=== PATIENT | female | born 1970 | race Caucasian/White ===

== ENCOUNTER 2017-12-22 12:02 | Observation (INO) ==
[2017-12-22] MEDS ORDERED: IOPAMIDOL 100 ML BOTTLE IV ONE (12:03)
[2017-12-22] MEDS ORDERED: 0.9 % SODIUM CHLORIDE 1,000 ML IV ONE (12:12)
[2017-12-22] MEDS ORDERED: 0.9 % SODIUM CHLORIDE 250 ML IV SCH ×2 (12:45→20:14)
[2017-12-22] MEDS ORDERED: PANTOPRAZOLE 40 MG VIAL IV ONE (12:46)
[2017-12-22 13:40] LABS: Basophils # (Auto) 0 K/mcL (0.0-0.3); Basophils % (Auto) 0.2 % (0.0-2.0); Eosinophils # (Auto) 0 K/mcL (0.0-0.7); Eosinophils % (Auto) 0.2 % (0.0-7.0); Granulocytes % (Auto) 89.8 % (38.0-78.0); Lymphocytes # (Auto) 0.4 K/mcL (1.5-4.8); Lymphocytes % (Auto) 5.4 % (15.5-49.0); Mean Cell Volume 84.7 fL (80.0-100.0); Monocytes # (Auto) 0.3 K/mcL (0.1-0.9); Monocytes % (Auto) 4.4 % (1.0-12.0); Platelet Count 217 K/mcL (140-440); RBC 4.49 M/mcL (4.00-5.20); Red Cell Distribution Width 13.5 % (11.5-14.5)
[2017-12-22] MEDS ORDERED: ACETAMINOPHEN 1,000 MG/100 ML BOTTLE IV ONE (14:02)
[2017-12-22 14:10] LABS: ALT/SGPT 13 U/l (0-40); Albumin 3.9 gm/dL (3.2-5.2); Albumin/Globulin Ratio 1.3 (1.0-2.3); Alkaline Phosphatase 72 U/L (39-117); Blood Urea Nitrogen 9 mg/dl (6-20)
[2017-12-22] MEDS ORDERED: ONDANSETRON 4 MG/2 ML VIAL IV ONE (15:12)
--- NOTE | 2017-12-22 17:57 | Cat Scan Report ---
History: Headache and syncope TECHNIQUE: The brain was imaged without contrast at 2.5 mm intervals. Radiation exposure was limited using dose reduction technology. FINDINGS: There is no evidence hemorrhage, infarct, edema or mass effect. The ventricles and cisterns are normal. Incidentally noted is a dense ossification in the falx, between the frontal lobes. The visualized sinuses are clear. IMPRESSION: Normal exam Sloane Fortune was called with the results Interpreted and Authenticated by: Amari Tay 12/22/17
--- NOTE | 2017-12-22 18:07 | Cat Scan Report ---
CLINICAL INFORMATION: Rectal bleeding and abdominal pain COMPARISON: 08/27/05 TECHNIQUE: Following oral contrast and the injection of intravenous contrast the patient was scanned during the portal venous phase from the diaphragm through the symphysis pubis. Delayed excretory phase images were acquired the upper abdomen. Sagittal and coronal reformats were created.. 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 This has enlarged since 2005. Associated with this are bands of atelectasis in the adjacent left lower lobe. The liver, gallbladder spleen pancreas and adrenals are normal. There are several fat-containing tumors in both kidneys. The largest is located anteriorly in the middle third of the left kidney. It is well-circumscribed and measures 5.2 x 5.2 cm. It measured 2.6 x 3.2 cm. There are couple other smaller fat-containing masses in the left kidney which are less than 7 mm in size. There are also several small fat-containing tumors in the right kidney. The largest extends exophytically from the posterior border of the lower pole. It measures 2.3 x 2.3 cm. It has also enlarged since 2005. There is no associated hemorrhage. No kidney stone or hydronephrosis are present. There is no abnormal enlarged lymph nodes within the abdomen or pelvis. The oral contrast has passed through stomach and normal bowel to the rectum without obstruction. There is a moderate amount stool throughout the colon. The appendix is noninflamed. There is no evidence of diverticulitis or inflammatory bowel disease. No obvious tumor is seen within the bowel. Polyps could easily be missed by the overlying stool. The uterus and ovaries appear normal. The urinary bladder is normal in caliber but unopacified. 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 Interpreted and Authenticated by: Amari Tay 12/22/17
[2017-12-22] MEDS ORDERED: PROMETHAZINE 25 MG/ML VIAL IV ONE (18:10)
--- NOTE | 2017-12-22 18:29 | Emergency Department Note ---
GI Bleed HPI - General Chief complaint: Rectal Bleed Stated complaint: black stools Time Seen by Provider: 12/22/17 12:08 Source: patient Mode of arrival: ambulatory Limitations: no limitations - History of Present Illness HPI Narrative: 47-year-old female presents with generally not feeling well since Thursday. States she feels very lightheaded and weak. Also has some body aches. Intermittent headache as well as nausea and vomiting. The last 48 hours she has noticed dark tarry stools and believes there is blood in her stools. The last time this happened she had peptic ulcers and had to have have 4 units of blood transfused and she believes that was roughly 4 years ago. She has saw Dr. Perez at that time. Her symptoms have progressed since Thursday so she presented to Dr. Mendoza's office today. When she presented to their office her blood pressure was 80/50 and she was tachycardic in the 120s. She then had a syncopal episode and was vomiting in their office as well. The center of the ER for further evaluation. Denies hitting her headache. No neck pain or stiffness. Has not vomited since her arrival to the ER but is complaining of severe nausea. No abdominal pain but does not report some abdominal cramping at times. Last normal bowel movement was yesterday and it was described as soft and formed but dark and tarry. No dysuria or frequency Associated symptoms: Reports: nausea, vomiting, chills, malaise, syncope, weakness. Denies: fever, shortness of breath - Related Data Home Medications Medication Instructions Recorded Confirmed Ibuprofen [Motrin] 800 mg PO TIDP PRN 04/23/16 12/22/17 Methocarbamol [Robaxin-750] 2 tab PO QIDP PRN 04/23/16 12/22/17 Ranitidine HCl [Acid Residential Team Leader] 150 mg PO DAILY 12/22/17 12/22/17 Allergies Allergy/AdvReac Type Severity Reaction Status Date / Time phenytoin [From Dilantin] Allergy Intermediate Confusion Verified 12/22/17 12:09 Review of Systems All systems ED: reviewed and negative except as stated. Past Medical History - Past Medical History Medical history: Reports: other (Peptic ulcer disease, anemia) - Social History smoking status: Never smoker Alcohol use: Reports: Rarely Drug use: Reports: none Physical Exam Limitations: no limitations General appearance: alert, in no apparent distress Head: atraumatic, normocephalic, normal inspection Eye: Present: normal appearance, PERRL. Absent: conjunctival injection, nystagmus ENT: normal exam, normal oropharynx, mucous membranes moist, TM's normal bilaterally, normal external ear exam Neck: Present: normal inspection, trachea midline. Absent: tenderness, lymphadenopathy Chest: Present: normal inspection, symmetric chest wall rise Respiratory: Present: normal lung sounds bilaterally. Absent: respiratory distress, rales/crackles, wheezes, stridor, accessory muscle use Cardiovascular: Present: regular rate, normal heart sounds Abdominal: Present: soft, normal bowel sounds. Absent: distention, tenderness, guarding, mass Rectal: Present: normal inspection, normal rectal tone, heme (+) stool, black stool. Absent: fecal impaction, hemorrhoids Extremities: Present: normal inspection, normal capillary refill. Absent: pedal edema Back: Absent: CVA tenderness (R), CVA tenderness (L) Neurological: Present: alert, oriented X3 Psychiatric: Present: normal affect, normal mood Skin: Present: warm, dry, intact, normal color Course Course Narrative: At 15[address] I did speak with Dr[address] Metzger, surgery who agreed to consult on this patient but felt it was more appropriate of a hospitalist admit. At [address] with Dr. Lugo, the hospitalist and he would like us to get a head CT due to syncope and we are currently awaiting the abdominal pelvic CT as well. We also add a troponin. Dr. Orellana did review her EKG and there are no significant findings. At 1830 I did speak with Dr. Lugo who agrees to admit the patient. Vital Signs Temperature 98.2 F 12/22/17 12:03 Respiratory Rate 16 12/22/17 12:03 Blood Pressure 134/74 12/22/17 12:03 Pulse Oximetry (%) 94 12/22/17 12:03 Temperature 98.2 F 12/22/17 12:03 Pulse Rate 83 12/22/17 17:39 Respiratory Rate 21 12/22/17 17:39 Blood Pressure 110/64 12/22/17 17:39 Pulse Oximetry (%) 100 12/22/17 17:39 GI Bleed - Lab Data Lab results reviewed: Yes I reviewed the patient's lab results. Result diagrams: 12/22/17 12:11 12/22/17 12:36 Lab Results 12/22/17 12/22/17 12/22/17 Range/Units 12:11 12:16 12:36 WBC 7.5 (4.5-11.0) K/mcL RBC 4.49 (4.00-5.20) M/mcL Hgb 12.6 (12.0-15.0) g/dL Hct 38.0 (36.0-48.0) % POC Hct 39.0 (36.0-48.0) % MCV 84.7 (80.0-100.0) fL MCH 28.0 (26.0-34.0) pg MCHC 33.0 (31.0-36.0) g/dL RDW 13.5 (11.5-14.5) % Plt Count 217 (140-440) K/mcL MPV 9.6 (7.4-10.4) fL Gran % 89.8 H (38.0-78.0) % Lymph % (Auto) 5.4 L (15.5-49.0) % [place] % (Auto) 4.4 (1.0-12.0) % Eos % (Auto) 0.2 (0.0-7.0) % Baso % (Auto) 0.2 (0.0-2.0) % Gran # 6.7 (1.8-8.0) K/mcL Lymph # (Auto) 0.4 L (1.5-4.8) K/mcL [place] # (Auto) 0.3 (0.1-0.9) K/mcL Eos # (Auto) 0 (0.0-0.7) K/mcL Baso # (Auto) 0 (0.0-0.3) K/mcL PT 13.4 (11.9-14.5) sec INR 1.0 (0.9-1.1) POC Sodium 142 (133-145) mmol/L Sodium 140 (133-145) mmol/L POC Potassium 3.8 (3.3-5.1) mmol/L Potassium 3.9 (3.3-5.1) mmol/L POC Chloride 105 (96-108) mmol/L Chloride 105 (96-108) mmol/L Carbon Dioxide 22 (22-30) mmol/L POC Total CO2 24 (22-30) mmol/L Anion Gap 13.0 (8-16) POC BUN 9 (6-20) mg/dl BUN 9 (6-20) mg/dl Creatinine 0.8 (0.6-1.1) mg/dl POC Creatinine 0.7 (0.6-1.1) mg/dl GFR Calculation 88 Glucose 120 H (70-105) mg/dL POC Glucose 116 H (70-105) mg/dL Calcium 8.7 (8.6-10.4) mg/dl POC WB Ioniz Calcium 1.16 (1.16-1.32) mmol/L Total Bilirubin 0.3 (0.0-1.0) mg/dL AST 19 (0-37) U/l ALT 13 (0-40) U/l Alkaline Phosphatase 72 (39-117) U/L Troponin T (0-0.03) ng/ml Total Protein 6.8 (5.9-8.4) gm/dL Albumin 3.9 (3.2-5.2) gm/dL Globulin 2.9 (2.2-3.7) gm/dL Albumin/Globulin Ratio 1.3 (1.0-2.3) 12/22/17 Range/Units 15:52 WBC (4.5-11.0) K/mcL RBC (4.00-5.20) M/mcL Hgb (12.0-15.0) g/dL Hct (36.0-48.0) % POC Hct (36.0-48.0) % MCV (80.0-100.0) fL MCH (26.0-34.0) pg MCHC (31.0-36.0) g/dL RDW (11.5-14.5) % Plt Count (140-440) K/mcL MPV (7.4-10.4) fL Gran % (38.0-78.0) % Lymph % (Auto) (15.5-49.0) % [place] % (Auto) (1.0-12.0) % Eos % (Auto) (0.0-7.0) % Baso % (Auto) (0.0-2.0) % Gran # (1.8-8.0) K/mcL Lymph # (Auto) (1.5-4.8) K/mcL [place] # (Auto) (0.1-0.9) K/mcL Eos # (Auto) (0.0-0.7) K/mcL Baso # (Auto) (0.0-0.3) K/mcL PT (11.9-14.5) sec INR (0.9-1.1) POC Sodium (133-145) mmol/L Sodium (133-145) mmol/L POC Potassium (3.3-5.1) mmol/L Potassium (3.3-5.1) mmol/L POC Chloride (96-108) mmol/L Chloride (96-108) mmol/L Carbon Dioxide (22-30) mmol/L POC Total CO2 (22-30) mmol/L Anion Gap (8-16) POC BUN (6-20) mg/dl BUN (6-20) mg/dl Creatinine (0.6-1.1) mg/dl POC Creatinine (0.6-1.1) mg/dl GFR Calculation Glucose (70-105) mg/dL POC Glucose (70-105) mg/dL Calcium (8.6-10.4) mg/dl POC WB Ioniz Calcium (1.16-1.32) mmol/L Total Bilirubin (0.0-1.0) mg/dL AST (0-37) U/l ALT (0-40) U/l Alkaline Phosphatase (39-117) U/L Troponin T < 0.01 (0-0.03) ng/ml Total Protein (5.9-8.4) gm/dL Albumin (3.2-5.2) gm/dL Globulin (2.2-3.7) gm/dL Albumin/Globulin Ratio (1.0-2.3) - Radiology Data Radiology results reviewed: Yes I reviewed the patient's radiology results. Disposition Pt seen by PRODUCTION OPERATIONS MANAGER/PA only: Yes Clinical Impression: Syncope, Dehydration, Blood in stool, Vomiting Disposition: Xfer As Outpt/Obs ([facility]) Condition: Fair Referrals: Rob Mendoza MD [Primary Care Provider] - Chyna Metzger MD [Physician] - Time of Disposition: 18:35
--- NOTE | 2017-12-22 20:20 | Internal Med History&Physical ---
Medical - H&P: HPI Patient information: Note initiated : 12/22/17 at 8:17 pm Service Date, if different from initiated Date: [] Patient: Pema White a 47 y/o F admitted on 12/22/17 for black stools. Chief Complaint: [] History of present illness: Ms. 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 Presents to the emergency room for evaluation of black tarry stools since yesterday, inability to tolerate p.o. since yesterday. The patient notes she has chronic migraines, vertigo and chronic nausea, yesterday she noticed she had black tarry stools, she was not able to tolerate p.o. very much. This morning again she had black tarry stools, she was throwing up, she was feeling weak and tired. She called her primary care provider's office for an evaluation. In the primary care providers office the patient had an episode of syncope. Also had low blood pressure. She was sent to the emergency room for further evaluation. According to the patient she synopsized while she was sitting in the chair and passed out as soon as she stood up. This is not the first time she has passed out she has had multiple episodes of passing out since childhood she can always predict when she is going to pass out. The patient denies any other acute complaints. In the emergency room the patient was seen and evaluated, workup done showed a normal hemoglobin, normal BUN, negative head CT, negative abdomen and pelvis CT. Fecal occult study was positive. Surgery was consulted for endoscopy they advised the patient to be admitted to medicine because of history of syncope. Patient had EKG changes however the troponin is negative. pt denies use of NSAIDs, heavy etoh use, use of blood thinners/ anticoagulants, or tobacco. Patient is being admitted to telemetry for observation and endoscopy All systems: reviewed and no additional remarkable complaints except as stated ( as per HPI rest negative) Medical - H&P: PMH Medical history: DVT/PE after femur fracture Anemia Car ulcer hiatal hernia chr vertigo Surgical history: EGD/ Colonscopy by dr jiang 2016 Family history: reviewed and not pertinent Social history: denies tobacco use, social etoh no recretional drug use reported Medical - H&P: Meds Home Medications Medication Instructions Recorded Confirmed Type Methocarbamol [Robaxin-750] 2 tab PO QIDP PRN 04/23/16 12/22/17 History Ranitidine HCl [Acid Irrigation Technician] 150 mg PO DAILY 12/22/17 12/22/17 History Allergies Allergy/AdvReac Type Severity Reaction Status Date / Time phenytoin [From Dilantin] AdvReac Mild Confusion Verified 12/22/17 20:15 Medical - H&P: Exam - Constitutional Vitals: Temp Pulse Resp BP Pulse Ox 98.2 F 94 H 22 98/48 99 12/22/17 20:02 12/22/17 20:02 12/22/17 20:02 12/22/17 20:02 12/22/17 20:02 Exam: GENERAL: The patient is a well-developed, well-nourished in no apparent distress. Is alert and oriented x3. VITAL SIGNS: Reviewed and as noted elsewhere. HEENT: Head is normocephalic and atraumatic. Extraocular muscles are intact. Pupils are equal, round, and reactive to light. Nares appeared normal. Mouth appears any without lesions. Mucous membranes are moist. NECK: Normal to inspection, Supple, No lymphadenopathy or thyromegaly. LUNGS: Air entry equal on both sides, no wheezing, crackles or rhonchi noted. No accessory muscles of respiration HEART: Regular rate and rhythm normal, S1 and S2 heard, no Gallop, S3 or Rub Noted, No Gross murmur heard. ABDOMEN: Soft, nontender, and nondistended. Positive bowel sounds. No hepatosplenomegaly was noted. EXTREMITIES: No cyanosis, clubbing, rash, lesions or edema. NEUROLOGIC: Cranial nerves II through XII are grossly intact. Motor and Sensory System Grossly Intact PSYCHIATRIC: Normal affect, Normal Mood. Appropriate Behavior. SKIN: No ulceration or wounds noted, No jaundice, No rash noted. Medical - H&P: Reslt - Labs CBC & Chem 7: 12/22/17 12:11 12/22/17 12:36 Labs: Short CBC 12/22/17 Range/Units 12:11 WBC 7.5 (4.5-11.0) K/mcL Hgb 12.6 (12.0-15.0) g/dL Hct 38.0 (36.0-48.0) % Plt Count 217 (140-440) K/mcL BMP 12/22/17 12:36 Sodium 140 Potassium 3.9 Chloride 105 Carbon Dioxide 22 BUN 9 Creatinine 0.8 Glucose 120 H Calcium 8.7 Cardiac Enzymes 12/22/17 Range/Units 15:52 Troponin T < 0.01 (0-0.03) ng/ml Liver Function 12/22/17 Range/Units 12:36 Total Bilirubin 0.3 (0.0-1.0) mg/dL AST 19 (0-37) U/l ALT 13 (0-40) U/l Alkaline Phosphatase 72 (39-117) U/L Albumin 3.9 (3.2-5.2) gm/dL Medical - H&P: A/P - Narrative A/P Narrative: A/P Acute GI bleed, likely upper GI bleed. Chr vertigo Syncope, vasovagal Nausea and Vomiting. h/o DVT and Pulmonary embolus, not on anticoagulation. Plan Observe on tele IV PPI bid for now Surgery consulted for Endoscopy, NPO MN IV zofran for prn nausea/vomiting. DVT with SCD NPO Diet Full code.
[2017-12-22] MEDS: 0.9 % SODIUM CHLORIDE 1,000 ML IV SCH (20:58)
[2017-12-22] MEDS: 0.9 % SODIUM CHLORIDE 10 ML SYRINGE IV SCH (20:59)
[2017-12-22] MEDS: PANTOPRAZOLE 40 MG VIAL IV SCH (20:59)
[2017-12-23 05:12] LABS: Basophils # (Auto) 0 K/mcL (0.0-0.3); Basophils % (Auto) 0.5 % (0.0-2.0); Eosinophils # (Auto) 0 K/mcL (0.0-0.7); Eosinophils % (Auto) 0.1 % (0.0-7.0); Granulocytes % (Auto) 64.6 % (38.0-78.0); Lymphocytes # (Auto) 0.8 K/mcL (1.5-4.8); Mean Cell Volume 84.9 fL (80.0-100.0); Monocytes # (Auto) 0.4 K/mcL (0.1-0.9); Monocytes % (Auto) 11.8 % (1.0-12.0); Platelet Count 172 K/mcL (140-440); RBC 3.74 M/mcL (4.00-5.20)
[2017-12-23 05:47] LABS: Blood Urea Nitrogen 5 mg/dl (6-20)
[2017-12-23] MEDS ORDERED: POTASSIUM CHLORIDE 40 MEQ in DEXTROSE 5% IN WATER 500 ML IV ONE (06:16)
[2017-12-23] MEDS: 0.9 % SODIUM CHLORIDE 1,000 ML IV SCH (06:51)
[2017-12-23] MEDS: PANTOPRAZOLE 40 MG VIAL IV SCH ×2 (06:51→16:57)
[2017-12-23] MEDS: 0.9 % SODIUM CHLORIDE 10 ML SYRINGE IV SCH ×3 (06:52→20:27)
--- NOTE | 2017-12-23 10:59 | XRay Report ---
HISTORY: Fever FINDINGS: Dense opacification is present posteriorly medially in the left lower lobe. The remainder the lungs are clear. No pleural effusion is detected. The heart size is normal. Comparison with the prior abdomen CT done on 12/22/17 shows that the density in left lower lobe is due to a large hiatus hernia with adjacent atelectasis. No acute infiltrate has developed. IMPRESSION: Large hiatus hernia in the left lower thorax with atelectasis in the adjacent lung. Interpreted and Authenticated by: Amari Tay 12/23/17
--- NOTE | 2017-12-23 11:52 | General Surgery Consult Note ---
History of Present Illness Patient information: Note initiated : 12/23/17 at 11:48 am Service Date, if different from initiated Date: [] Patient: Pema White 47 y/o F admitted on 12/22/17 for Black Stools/GI Bleed. Chief Complaint: [47-year-old female admitted with suspected upper GI bleed. The patient presents with history of nausea vomiting and black stools. She had 2 black stools at home before she was seen in her primary care physician's office. She had a syncopal episode in the office with blood pressure noted 80/ 50. She was transferred to the emergency room for she had more nausea with emesis but the emesis did not appear to be bloody however it was guaiac- positive. Her hemoglobin has decreased from 12.6-10.5 overnight. She has had 2 bowel movements since admission and. These were guaiac positive but not frankly bloody or melanotic. Patient has a prior history of a Car's ulcer in her hiatal hernia pouch. She presented in April 2016 with anemia with a hemoglobin of 6.6. Colonoscopy was normal except for rectal polyps. Upper endoscopy showed a large ulcer in her hiatal hernia pouch at the level of the diaphragm compatible with Car's ulcer. CLOtest was negative. She did have gastric polyps. The patient states that she took her PPI until symptoms resolve and then discontinue her PPI. She has not used NSAIDs recently.] Patient is counseled for upper endoscopy which will be done tomorrow. Review of Systems All systems PM: reviewed and no additional remarkable complaints except as stated - Constitutional headache(s) - Gastrointestinal bloating, dyspepsia, heartburn, melena, nausea, vomiting - Neurological paresthesias (right ulnar neuropathy), syncope (probable vasovagal syncope), vertigo Past History Past medical history: No chronic illness Past surgical history: OTIF right femur OTIF left hand and wrist Right knee arthroscopy Diagnostic laparoscopy Past family history: OTIF right femur Past social history: Employment Occasional alcohol use Denies tobacco use Denies drug use Medications and Allergies Home Medications Medication Instructions Recorded Confirmed Type Methocarbamol [Robaxin-750] 2 tab PO QIDP PRN 04/23/16 12/22/17 History Ranitidine HCl [Acid Public Relations Specialist] 150 mg PO DAILY PRN 12/22/17 12/22/17 History Allergies Allergy/AdvReac Type Severity Reaction Status Date / Time phenytoin [From Dilantin] AdvReac Mild Confusion Verified 12/22/17 20:15 Exam Temp Pulse Resp BP Pulse Ox 100.7 F H 81 16 116/74 96 12/23/17 07:45 12/23/17 03:57 12/23/17 07:45 12/23/17 07:45 12/23/17 07:45 - General physical appearance well developed, well nourished, no distress - Eyes PERRL, normal ocular movement - ENT normal pinna, normal nares, normal mucosa, no hearing loss, no congestion - Head Head exam IM: Present: atraumatic, normocephalic - Neck no masses, no bruits, trachea midline, no lymphadectomy, no venous distension - Cardiovascular Cardiovascular exam IM: Present: normal rate and rhythm, RRR, +S1, +S2. Absent : irregular rhythm, JVD, tachycardia - Respiratory normal expansion, normal respiratory effort, clear to auscultation - Abdomen Abdomen: Present: soft, non tender, bowel sounds Hernia: Present: none - Genitourinary Present: normal external genitalia - Integumentary Present: no rash, no growths, no abnormal pigmentation - Neurologic Present: normal coordination, normal sensation - Musculoskeletal Present: normal gait, normal posture - Psychiatric Present: oriented to time, oriented to person, oriented to place, speech is normal, memory intact Results - Labs 12/23/17 03:35 12/23/17 03:35 Abnormal lab results 12/22/17 12/22/17 12/23/17 Range/Units 12:11 12:36 03:35 WBC (4.5-11.0) K/mcL RBC (4.00-5.20) M/mcL Hgb (12.0-15.0) g/dL Hct (36.0-48.0) % Gran % 89.8 H (38.0-78.0) % Lymph % (Auto) 5.4 L (15.5-49.0) % Lymph # (Auto) 0.4 L (1.5-4.8) K/mcL Chloride 110 H (96-108) mmol/L Carbon Dioxide 21 L (22-30) mmol/L BUN 5 L (6-20) mg/dl Glucose 120 H (70-105) mg/dL POC Glucose 116 H (70-105) mg/dL Calcium 7.7 L (8.6-10.4) mg/dl 12/23/17 Range/Units 03:35 WBC 3.6 L (4.5-11.0) K/mcL RBC 3.74 L (4.00-5.20) M/mcL Hgb 10.5 L (12.0-15.0) g/dL Hct 31.8 L (36.0-48.0) % Gran % (38.0-78.0) % Lymph % (Auto) (15.5-49.0) % Lymph # (Auto) 0.8 L (1.5-4.8) K/mcL Chloride (96-108) mmol/L Carbon Dioxide (22-30) mmol/L BUN (6-20) mg/dl Glucose (70-105) mg/dL POC Glucose (70-105) mg/dL Calcium (8.6-10.4) mg/dl Diabetes panel 12/22/17 12/23/17 Range/Units 12:36 03:35 Sodium 140 141 (133-145) mmol/L Potassium 3.9 3.6 (3.3-5.1) mmol/L Chloride 105 110 H (96-108) mmol/L Carbon Dioxide 22 21 L (22-30) mmol/L BUN 9 5 L (6-20) mg/dl Creatinine 0.8 0.7 (0.6-1.1) mg/dl Glucose 120 H 97 (70-105) mg/dL Calcium 8.7 7.7 L (8.6-10.4) mg/dl AST 19 (0-37) U/l ALT 13 (0-40) U/l Alkaline Phosphatase 72 (39-117) U/L Total Protein 6.8 (5.9-8.4) gm/dL Albumin 3.9 (3.2-5.2) gm/dL Calcium panel 12/22/17 12/23/17 Range/Units 12:36 03:35 Calcium 8.7 7.7 L (8.6-10.4) mg/dl Albumin 3.9 (3.2-5.2) gm/dL Pituitary panel 12/22/17 12/23/17 Range/Units 12:36 03:35 Sodium 140 141 (133-145) mmol/L Potassium 3.9 3.6 (3.3-5.1) mmol/L Chloride 105 110 H (96-108) mmol/L Carbon Dioxide 22 21 L (22-30) mmol/L BUN 9 5 L (6-20) mg/dl Creatinine 0.8 0.7 (0.6-1.1) mg/dl Glucose 120 H 97 (70-105) mg/dL Calcium 8.7 7.7 L (8.6-10.4) mg/dl Adrenal panel 12/22/17 12/23/17 Range/Units 12:36 03:35 Sodium 140 141 (133-145) mmol/L Potassium 3.9 3.6 (3.3-5.1) mmol/L Chloride 105 110 H (96-108) mmol/L Carbon Dioxide 22 21 L (22-30) mmol/L BUN 9 5 L (6-20) mg/dl Creatinine 0.8 0.7 (0.6-1.1) mg/dl Glucose 120 H 97 (70-105) mg/dL Calcium 8.7 7.7 L (8.6-10.4) mg/dl Total Bilirubin 0.3 (0.0-1.0) mg/dL AST 19 (0-37) U/l ALT 13 (0-40) U/l Alkaline Phosphatase 72 (39-117) U/L Total Protein 6.8 (5.9-8.4) gm/dL Albumin 3.9 (3.2-5.2) gm/dL All other labs normal. Assessment and Plan (1) Upper gastrointestinal bleeding Patient has been started on PPI therapy. She is counseled for upper endoscopy and that will be done tomorrow. Status: Acute (2) Blood loss anemia Hemoglobin is stable and she probably will not need transfusion Status: Acute (3) Vasovagal syncope Status: Acute
[2017-12-23 13:52] LABS: Appearance,Urine CLEAR; Bacteria,Urine 0 /hpf (0); Bilirubin,Urine NEG (NEG); Color,Urine STRAW; Glucose,Urine (UA) NEGATIVE (NEG); Leukocyte Esterase,Urine NEG /uL (NEG); Mucus,Urine FEW /hpf (0); Protein,Urine NEG (NEG); Specific Gravity,Urine 1.004 (1.000-1.035); Urine Blood NEG mg/dL (<0.03); Urine RBC 0 /hpf (0-1); Urine Squamous Epithelial Cell < 1 /hpf (0-4); Urine WBC 1 /hpf (0-4); Urobilinogen,Urine NEG (NEG)
--- NOTE | 2017-12-23 19:14 | Internal Med Progress Note ---
Medical - PN: Subj Patient information: Note initiated : 12/23/17 at 7:11 pm Service Date, if different from initiated Date: [] Patient: Pema White a 47 y/o F admitted on 12/22/17 for Black Stools/GI Bleed. Chief Complaint: [] Interval history: Ms. 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 Presents to the emergency room for evaluation of black tarry stools since yesterday, inability to tolerate p.o. since yesterday. The patient notes she has chronic migraines, vertigo and chronic nausea, yesterday she noticed she had black tarry stools, she was not able to tolerate p.o. very much. This morning again she had black tarry stools, she was throwing up, she was feeling weak and tired. She called her primary care provider's office for an evaluation. In the primary care providers office the patient had an episode of syncope. Also had low blood pressure. She was sent to the emergency room for further evaluation. According to the patient she synopsized while she was sitting in the chair and passed out as soon as she stood up. This is not the first time she has passed out she has had multiple episodes of passing out since childhood she can always predict when she is going to pass out. The patient denies any other acute complaints. In the emergency room the patient was seen and evaluated, workup done showed a normal hemoglobin, normal BUN, negative head CT, negative abdomen and pelvis CT. Fecal occult study was positive. Surgery was consulted for endoscopy they advised the patient to be admitted to medicine because of history of syncope. Patient had EKG changes however the troponin is negative. pt denies use of NSAIDs, heavy etoh use, use of blood thinners/ anticoagulants, or tobacco. Patient is being admitted to telemetry for observation and endoscopy 12/23 Pt seen examined no acute overnight issues, some nausea, on IV PPI, lola resolved drop in hb by 2 gms, likely dilutional plan for EGD in AM fever this am, wbc neg, cxr shows atelectasis, ua neg likely cause for fever is atelectasis, incentive spirometery added Pertinent ROS: Denies headache, dizziness Denies chest pain, palpitations Denies cough or shortness of breath nausea present, . - Constitutional Vitals: Vital Signs Temp Pulse Resp BP Pulse Ox 99.7 F H 83 18 120/80 97 12/23/17 16:00 12/23/17 16:00 12/23/17 16:00 12/23/17 16:00 12/23/17 16:00 Period Temp Pulse Resp BP Sys/Blankenship Pulse Ox Last 24 Hr 98.0 F-101.5 F 75-94 16-22 98-120/48-80 95-99 Intake and Output 12/23/17 12/23/17 12/23/17 05:59 13:59 21:59 Intake Total 360 / 360 1908 / 1908 640 / 640 Output Total 850 / 850 1750 / 1750 1100 / 1100 Balance -490 / -490 158 / 158 -460 / -460 Intake & Output: Intake & Output 12/23/17 12/23/17 12/23/17 05:59 13:59 21:59 Intake Total 360 / 360 1908 / 1908 640 / 640 Output Total 850 / 850 1750 / 1750 1100 / 1100 Balance -490 / -490 158 / 158 -460 / -460 Intake: IV 1508 / 1508 Sodium Chloride 0.9% 1,000 ml @ 988 / 988 100 mls/hr IV .Q10H JOHNSON Rx#: [id number] Oral 360 / 360 400 / 400 640 / 640 Output: Void Amount 800 / 800 1750 / 1750 1100 / 1100 Stool 50 / 50 Other: Meal Lunch Lunch Percent of Meal Consumed 75% 100% Feeding Ability Assist with Tray Set Up Urine Appearance Clear Urine Color Bright Yellow Urine Odor Normal Stool Size Small Small Stool Color Brown Brown Stool Consistency Formed Formed # Bowel Movements 1 1 Exam: Constitutional; Afebrile, cooperative, alert, not in distress. Eyes- No icterus, , No periorbital swelling Ears- Ext ear normal, hearing normal to conversation. Neck- Midline trachea, supple Respiratory system: Air Entry equal on both sides, No crackles or wheezing, no rhonchi. CVS- Rate rhythm regular, S1,S2 heard, no gallop, no rub. Abdomen- Soft nontender abdomen, no organomegaly, no tenderness, no guarding or rigidity, NETWORK INFRASTRUCTURE ARCHITECT- AOOx3, moving all extremities, no gross focal deficit noted. Medical - PN: Obj Da - Labs CBC & Chem 7: 12/23/17 03:35 12/23/17 03:35 Labs: Abnormal Lab Results 12/23/17 12/23/17 12/22/17 03:35 03:35 12:36 WBC 3.6 L RBC 3.74 L Hgb 10.5 L Hct 31.8 L Gran % Lymph % (Auto) Lymph # (Auto) 0.8 L Chloride 110 H Carbon Dioxide 21 L BUN 5 L Glucose 120 H POC Glucose 116 H Calcium 7.7 L 12/22/17 12:11 WBC RBC Hgb Hct Gran % 89.8 H Lymph % (Auto) 5.4 L Lymph # (Auto) 0.4 L Chloride Carbon Dioxide BUN Glucose POC Glucose Calcium Meds: Medications Pantoprazole Sodium (Protonix) 40 mg IV BIDAC [facility] Last Admin: 12/23/17 16:57 Dose: 40 mg Sodium Chloride (Saline Flush) 10 ml IV Q8 [facility] Last Admin: 12/23/17 14:00 Dose: Not Given Medical - PN: A/P - Time Spent With Patient Total time spent is greater than 50% in coordination of care (as documented) at patient's floor/unit and/or counseling patient: - Narrative A/P Narrative: A/P Acute GI bleed, likely upper GI bleed. Chr vertigo Syncope, vasovagal Nausea and Vomiting. h/o DVT and Pulmonary embolus, not on anticoagulation. Fever secondary to atelectasis. Plan Observe on tele IV PPI bid for now Surgery consulted for Endoscopy, NPO MN IV zofran for prn nausea/vomiting. incentive spirometer for atelectasis. likely cause for fever DVT with SCD NPO Diet Full code. Medical - PN: Qual - VTE Deep Vein Thrombosis/Pulmonary Embolism Present on Admission: No
[2017-12-24] MEDS: 0.9 % SODIUM CHLORIDE 10 ML SYRINGE IV SCH ×4 (05:24→17:41)
[2017-12-24 05:41] LABS: Basophils # (Auto) 0 K/mcL (0.0-0.3); Basophils % (Auto) 0.8 % (0.0-2.0); Eosinophils # (Auto) 0.1 K/mcL (0.0-0.7); Eosinophils % (Auto) 2.4 % (0.0-7.0); Granulocytes % (Auto) 35.4 % (38.0-78.0); Lymphocytes # (Auto) 1.5 K/mcL (1.5-4.8); Lymphocytes % (Auto) 42.5 % (15.5-49.0); Mean Cell Volume 84.6 fL (80.0-100.0); Mean Corpuscular HGB Conc 33.6 g/dL (31.0-36.0); Mean Corpuscular Hemoglobin 28.4 pg (26.0-34.0); Monocytes # (Auto) 0.7 K/mcL (0.1-0.9); Monocytes % (Auto) 18.9 % (1.0-12.0); Platelet Count 182 K/mcL (140-440); RBC 4.04 M/mcL (4.00-5.20); Red Cell Distribution Width 13.5 % (11.5-14.5)
[2017-12-24] MEDS: PANTOPRAZOLE 40 MG VIAL IV SCH (08:23)
[2017-12-24 10:08] LABS: ALT/SGPT 10 U/l (0-40); Albumin 3.5 gm/dL (3.2-5.2); Albumin/Globulin Ratio 1.5 (1.0-2.3); Alkaline Phosphatase 61 U/L (39-117); Bilirubin,Direct < 0.2 mg/dL (0.0-0.3); Blood Urea Nitrogen 4 mg/dl (6-20); Gamma Glutamyl Transpeptidase 15 U/L (5-36); Uric Acid 3.3 mg/dL (2.5-8.0)
[2017-12-24] MEDS ORDERED: GLYCOPYRROLATE 0.2 MG/ML VIAL IV ONE (11:05)
[2017-12-24] MEDS ORDERED: MIDAZOLAM 2 MG/2 ML VIAL IV ONE (11:05)
[2017-12-24] MEDS ORDERED: fentaNYL 100 MCG/2 ML VIAL IV ONE (11:05)
[2017-12-24] MEDS ORDERED: PROPOFOL 200 MG/20 ML VIAL IV ONE (11:05)
[2017-12-24] MEDS ORDERED: KETAMINE 100 MG/ML ML IV ONE (11:05)
--- NOTE | 2017-12-24 11:22 | Brief Operative Note ---
Date of procedure: 12/24/17 Pre-op diagnosis: ACUTE GASTROINTESTINAL BLEED Post-op diagnosis: other (ACUTE EROSIVE GASTRITIS WITH GASTRIC EROSIONS; 2 ULCERS IN HIATAL HERNIA POUCH) Procedure: EGD Grafts/Implants: No Anesthesia: MAC Findings: ACUTE MODERATELY SEVERE INFLAMMATION IN ENTIRE STOMACH WITH MULTIPLE EROSIONS;2 SMALL ULCERS IN HIATAL HERNIA POUCH Complications: none Surgeon: Chyna Metzger Specimens Removed/Pathology: none sent Condition: stable Disposition: PACU
[2017-12-24] MEDS: SUCRALFATE 1 GM/10 ML ORAL.SUSP PO SCH ×2 (13:53→17:40)
--- NOTE | 2017-12-24 16:56 | Discharge Summary ---
Medical - DS: Prov Patient information: Note initiated : 12/24/17 at 4:52 pm Service Date, if different from initiated Date: [] Patient: Pema White a 47 y/o F admitted on 12/22/17 for Black Stools/GI Bleed. Chief Complaint: [] Date of admission: 12/22/17 19:53 Discharge date: 12/24/17 Primary care physician: Rob Mendoza Consults: 12/23/17 07:39 Consult to Physician [CONS] Routine Comment: consult Consulting Provider: Chyna Metzger Reason For Exam: Physician to Consult Discharging clinician: Preston Graves Medical - DS: Meds - Discharge Medications Prescriptions: Pantoprazole [Protonix] 40 mg PO QAMAC #90 tab Active and Home Medications: Home Medications Methocarbamol [Robaxin-750] 2 tab PO QIDP PRN 04/23/16 [History Confirmed Last Taken 12/08/17] Ranitidine HCl [Acid Warehouse Specialist] 150 mg PO DAILY PRN 12/22/17 [History Confirmed Last Taken 12/22/17 08:00] Medical - DS: Hosp Hospital course: Ms. 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 Presents to the emergency room for evaluation of black tarry stools since yesterday, inability to tolerate p.o. since yesterday. The patient notes she has chronic migraines, vertigo and chronic nausea, yesterday she noticed she had black tarry stools, she was not able to tolerate p.o. very much. This morning again she had black tarry stools, she was throwing up, she was feeling weak and tired. She called her primary care provider's office for an evaluation. In the primary care providers office the patient had an episode of syncope. Also had low blood pressure. She was sent to the emergency room for further evaluation. According to the patient she synopsized while she was sitting in the chair and passed out as soon as she stood up. This is not the first time she has passed out she has had multiple episodes of passing out since childhood she can always predict when she is going to pass out. The patient denies any other acute complaints. In the emergency room the patient was seen and evaluated, workup done showed a normal hemoglobin, normal BUN, negative head CT, negative abdomen and pelvis CT. Fecal occult study was positive. Surgery was consulted for endoscopy they advised the patient to be admitted to medicine because of history of syncope. Patient had EKG changes however the troponin is negative. pt denies use of NSAIDs, heavy etoh use, use of blood thinners/ anticoagulants, or tobacco. Patient is being admitted to telemetry for observation and endoscopy Patient was observed, remained hemodynamically stable, black stools turned to brown, no events on tele, Treated with IV PPI, she underwent a EGD Scopy which showed " ACUTE MODERATELY SEVERE INFLAMMATION IN ENTIRE STOMACH WITH MULTIPLE EROSIONS;2 SMALL ULCERS IN HIATAL HERNIA POUCH" Patient to be restarted on PPI, I am starting her on pantoprazole, but any PPI will do. PCP may consider workup for gastrin secreting syndrome as outpatient when patient symptoms are much better controlled. patient had fever during hospital stay, procalcitonin neg, chest x ray neg showed atelectasis, ua neg, CT Abdomen pelvis is negative. fever likely from atelectasis and responded to incentive spirometery. Rest of [facility] stay in the hospital was uneventful, no changes made to [facility] home medication list. Discharge diagnosis: Upper GI bleed - Time Spent with Patient Total time spent providing and/or coordinating discharge services: Greater than 30 minutes Medical - DS: Exam - Constitutional Vitals: Vital Signs Temp Pulse Resp BP Pulse Ox 12/24/17 13:00 97.4 F 74 18 121/71 95 12/24/17 12:30 75 18 123/67 96 12/24/17 12:15 82 18 111/77 94 12/24/17 12:00 88 18 112/82 92 12/24/17 11:49 97.6 F 91 H 16 118/79 93 12/24/17 08:00 97.7 F 75 16 112/73 95 12/24/17 03:52 98.9 F 79 16 111/72 93 12/23/17 23:58 98.7 F 84 16 118/78 95 12/23/17 20:00 99.8 F H 82 18 110/75 94 Intake and Output 12/24/17 12/24/17 12/24/17 05:59 13:59 21:59 Intake Total 480 / 480 360 / 360 Output Total 1450 / 1450 1153 / 1153 Balance -970 / -970 -793 / -793 Intake: Oral 480 / 480 360 / 360 Output: Urine Catheter Amount 1150 / 1150 Void Amount 1450 / 1450 Other: Meal Nourishment/Supplement Lunch Percent of Meal Consumed 100% 25% Feeding Ability Independent Independent Urine Appearance Clear Clear Urine Color Pale Urine Odor Normal Additional comments: Constitutional; Afebrile, cooperative, alert, not in distress. Eyes- No icterus, , No periorbital swelling Ears- Ext ear normal, hearing normal to conversation. Neck- Midline trachea, supple Respiratory system: Air Entry equal on both sides, No crackles or wheezing, no rhonchi. CVS- Rate rhythm regular, S1,S2 heard, no gallop, no rub. Abdomen- Soft nontender abdomen, no organomegaly, no tenderness, no guarding or rigidity, MUSICIAN INSTRUMENTAL- AOOx3, moving all extremities, no gross focal deficit noted. Medical - DS: Data Labs on day of discharge: Labs from last 24 hours 12/24/17 12/24/17 12/24/17 09:11 03:30 03:30 WBC 3.6 L RBC 4.04 Hgb 11.5 L Hct 34.2 L MCV 84.6 MCH 28.4 MCHC 33.6 RDW 13.5 Plt Count 182 MPV 9.9 Gran % 35.4 L Lymph % (Auto) 42.5 [place] % (Auto) 18.9 H Eos % (Auto) 2.4 Baso % (Auto) 0.8 Gran # 1.3 L Lymph # (Auto) 1.5 [place] # (Auto) 0.7 Eos # (Auto) 0.1 Baso # (Auto) 0 Sodium 139 Potassium 4.6 Chloride 107 Carbon Dioxide 26 Anion Gap 6.0 L BUN 4 L Creatinine 0.7 GFR Calculation 103 Glucose 99 Uric Acid 3.3 Calcium 8.5 L Phosphorus 3.1 Magnesium 1.9 Total Bilirubin 0.2 Direct Bilirubin < 0.2 GGT 15 AST 16 ALT 10 Alkaline Phosphatase 61 Lactate Dehydrogenase 255 H Total Protein 5.8 L Albumin 3.5 Globulin 2.3 Albumin/Globulin Ratio 1.5 Triglycerides 92 Procalcitonin < 0.05 Medical - DS: A/P - Patient/Caregiver Discharge Instructions Activity: increase activity as tolerated Diet: Regular Diet Additional Instructions: Take pantoprazole 30mins before a meal on empty stomach. Go to the ER if black stools, blood in the stools, fever or any other acute concern. Follow up with PCP in 1-2 weeks - Follow up Plan Follow up with: Rob Mendoza MD [Primary Care Provider] - 12/29/17 4:00 pm Disposition: Home, Self-Care Prognosis: Fair Rehab Potential: Fair I certify that the patient requires SNF services: No Overall status at discharge: patient is progressing back to baseline Medical - DS: Qual - VTE Deep Vein Thrombosis/Pulmonary Embolism Present on Admission: No
[2017-12-24] MEDS ORDERED: PANTOPRAZOLE 40 MG VIAL IV SCH (17:00)
--- NOTE | 2017-12-30 08:50 | Operative Note ---
DATE OF OPERATION: 12/24/2017 PREOPERATIVE DIAGNOSIS: Acute gastrointestinal bleeding. POSTOPERATIVE DIAGNOSIS: Acute erosive gastritis with gastric erosion with 2 ulcerations in the hiatal hernia pouch at the level of the diaphragm. PROCEDURE: Esophagogastroduodenoscopy with biopsies. SURGEON: Chyna Metzger M.D. FINDINGS: Acute moderately severe inflammation in the entire stomach with multiple erosions, two smaller healing ulcers in the hiatal hernia pouch at the level of the diaphragm. DESCRIPTION OF PROCEDURE: Under general anesthesia, the patient turned to the left lateral decubitus position. Bite block was placed. A time-out procedure was carried out as per protocol. Scope was introduced through the bite block into the retropharynx and into the esophagus. The esophagus was primarily unremarkable throughout its length. There was a large hiatal hernia. Immediately after entering the distal aspect of the stomach at the level of the diaphragm, there were two small ulcerations that were healing. These were linear ulcerations. The rest of the stomach had multiple erosions scattered throughout. Pylorus was unremarkable. Duodenum showed minimal inflammation. Second and third portion of his duodenum were normal. Scope was pulled back and retroflexed view was carried out. Two biopsies of the small ulcerations were taken. The patient tolerated the procedure well. Air was suctioned from the stomach and the scope was removed. The patient was awakened and monitored in the room and then transferred back to the [facility] in satisfactory condition. LCS:roxy Job ID: [id number] Doc ID: [id number] Chyna Metzger M.D.
== END 2017-12-24 18:08 | disposition home or self-care (01) ==
LOC: ICU 12:02 → ED 12:02 → ICU 19:53
PROVIDERS: ADMIT Internal Medicine; ATTEND Internal Medicine
CPT/HCPCS: 43239; 731; 80047; 84145; 85014; 99217; 99220; G0378; J0131; J2250; J2405; J2550; J3010; J3480; J7030; J7060; J7120; Q9967

== ENCOUNTER 2018-11-30 12:26 | Observation (INO) ==
[2018-11-30] MEDS ORDERED: ESOMEPRAZOLE 80 MG in 0.9 % SODIUM CHLORIDE 50 ML IV SCH (13:00)
[2018-11-30] MEDS ORDERED: ESOMEPRAZOLE 40 MG VIAL IV ONE ×2 (13:05→13:32)
--- NOTE | 2018-11-30 13:22 | Emergency Department Note ---
General Adult HPI - General Chief complaint: Bleeding Other Stated complaint: dark tarry stools Time Seen by Provider: 11/30/18 12:46 Source: patient Mode of arrival: ambulatory Limitations: no limitations - History of Present Illness HPI Narrative: 48-year-old patient presenting to the emergency department with a chief complaint of upper GI bleed. Patient's past medical history is significant for potentially up to 3 upper GI bleeds in the past. Medication history was assessed for possible NSAIDs, agents that cause pill esophagitis, antiplatelet and anticoagulant medication as well as bismuth and iron patient is taking none of these. Patient with onset of symptoms 1-2 days ago. Assessed the patient for symptoms of orthostatic hypotension, confusion, angina, palpitations, cold clammy extremities, dysphagia, early satiety, involuntary weight loss, jaundice, vomiting, and GERD. Patient did not have history of alcohol use. - Related Data Home Medications Medication Instructions Recorded Confirmed Methocarbamol [Robaxin-750] 2 tab PO QIDP PRN 04/23/16 11/30/18 Omeprazole [PriLOSEC] 40 mg PO ACB 11/30/18 11/30/18 Allergies Allergy/AdvReac Type Severity Reaction Status Date / Time phenytoin [From Dilantin] AdvReac Mild Confusion Verified 11/30/18 12:30 Review of Systems All systems ED: reviewed and negative except as stated. Past Medical History - Past Medical History PMFSH Narrative: All Active Problems Syncope (Acute) Dehydration (Acute) Blood in stool (Acute) Vomiting (Acute) Upper gastrointestinal bleeding (Acute) Blood loss anemia (Acute) Vasovagal syncope (Acute) Medical history: Reports: other (Peptic ulcer disease, anemia) - Social History smoking status: Never smoker Alcohol use: Reports: Rarely Drug use: Reports: none Physical Exam General: Alert, interactive, appropriate Head: Atraumatic, normocephalic Eyes: Extraocular movements intact, PERRLA Neck: Trachea midline, full range of motion Chest: Symmetrical chest wall rise, clear to auscultation bilateral without wheezes rales crackles or rubs Cardiovascular: Patient with excellent perfusion to the extremities, regular rate and rhythm without M/R/G; patient assessed for resting tachycardia, evidence of hypotension and patient was without these findings Abdomen: Nontender nondistended normoactive bowel sounds no masses no hepatosplenomegaly no rebound no guarding, patient assessed specifically for pe ritoneal findings Extremities: Full range of motion joints, warm well perfused Neuro: Alert, oriented x3, cranial nerves II through XII grossly intact, normal gait Psychiatric: Normal affect normal mood Limitations: no limitations Course Vital Signs Temperature 97.4 F 11/30/18 12:27 Pulse Rate 105 H 11/30/18 12:27 Respiratory Rate 20 11/30/18 12:27 Blood Pressure 118/82 11/30/18 12:27 Pulse Oximetry (%) 98 11/30/18 12:27 Temperature 98.3 F 12/01/18 04:04 Pulse Rate 75 12/01/18 04:04 Respiratory Rate 16 12/01/18 04:04 Blood Pressure 95/53 12/01/18 04:04 Pulse Oximetry (%) 95 12/01/18 04:04 Medical Decision Making - MDM Narrative Medical decision making narrative: Initial focus of the resuscitation was to determine hemodynamic stability. Risk stratifying the patient into the category of acutely unstable GI bleed, stable for admission and endoscopy, and stable for discharge with close follow-up. IV access was obtained, fluid resuscitation begun. Patient given Protonix 80 mg IV. Consider transfusion for hemoglobin less than or equal to 7 or less than or equal to 9 in high risk patients; patient with active vomiting of coffee-ground emesis in the emergency department as well as history of GI bleed requiring multiple days stays patient high risk category for decompensation. Discussed case with Dr. Metzger and the consensus medical opinion is to admit the patient f or endoscopy. Differential diagnosis considered includes gastric/duodenal ulcers, erosive gastritis/duodenitis, severe erosive esophagitis, variceal bleed, angiodysplasia, Sherron-Hutchinson tear, oncologic etiologies, aortoenteric fistula. - Lab Data Result diagrams: 12/01/18 04:04 12/01/18 04:04 Lab Results 11/30/18 11/30/18 11/30/18 Range/Units 13:03 13:03 13:03 WBC 9.9 (4.5-11.0) K/mcL RBC 4.47 (4.00-5.20) M/mcL Hgb 11.9 L (12.0-15.0) g/dL Hct 36.8 (36.0-48.0) % MCV 82.3 (80.0-100.0) fL MCH 26.7 (26.0-34.0) pg MCHC 32.4 (31.0-36.0) g/dL RDW 15.3 H (11.5-14.5) % Plt Count 281 (140-440) K/mcL MPV 9.3 (7.4-10.4) fL Gran % 68.2 (38.0-78.0) % Lymph % (Auto) 23.2 (15.5-49.0) % [place] % (Auto) 7.2 (1.0-12.0) % Eos % (Auto) 0.8 (0.0-7.0) % Baso % (Auto) 0.6 (0.0-2.0) % Gran # 6.7 (1.8-8.0) K/mcL Lymph # (Auto) 2.3 (1.5-4.8) K/mcL [place] # (Auto) 0.7 (0.1-0.9) K/mcL Eos # (Auto) 0.1 (0.0-0.7) K/mcL Baso # (Auto) 0.1 (0.0-0.3) K/mcL PT 13.6 (11.9-14.5) sec INR 1.0 (0.9-1.1) Sodium 140 (133-145) mmol/L Potassium 4.3 (3.3-5.1) mmol/L Chloride 106 (96-108) mmol/L Carbon Dioxide 23 (22-30) mmol/L Anion Gap 11.0 (8-16) BUN 28 H (6-20) mg/dl Creatinine 0.7 (0.6-1.1) mg/dl GFR Calculation 102 Glucose 102 (70-105) mg/dL Calcium 8.8 (8.6-10.4) mg/dl Total Bilirubin 0.2 (0.0-1.0) mg/dL AST 14 (0-37) U/l ALT 14 (0-40) U/l Alkaline Phosphatase 82 (39-117) U/L C-Reactive Protein (0.0-0.8) mg/dl Total Protein 6.7 (5.9-8.4) gm/dL Albumin 4.0 (3.2-5.2) gm/dL Globulin 2.7 (2.2-3.7) gm/dL Albumin/Globulin Ratio 1.5 (1.0-2.3) 11/30/18 Range/Units 13:03 WBC (4.5-11.0) K/mcL RBC (4.00-5.20) M/mcL Hgb (12.0-15.0) g/dL Hct (36.0-48.0) % MCV (80.0-100.0) fL MCH (26.0-34.0) pg MCHC (31.0-36.0) g/dL RDW (11.5-14.5) % Plt Count (140-440) K/mcL MPV (7.4-10.4) fL Gran % (38.0-78.0) % Lymph % (Auto) (15.5-49.0) % [place] % (Auto) (1.0-12.0) % Eos % (Auto) (0.0-7.0) % Baso % (Auto) (0.0-2.0) % Gran # (1.8-8.0) K/mcL Lymph # (Auto) (1.5-4.8) K/mcL [place] # (Auto) (0.1-0.9) K/mcL Eos # (Auto) (0.0-0.7) K/mcL Baso # (Auto) (0.0-0.3) K/mcL PT (11.9-14.5) sec INR (0.9-1.1) Sodium (133-145) mmol/L Potassium (3.3-5.1) mmol/L Chloride (96-108) mmol/L Carbon Dioxide (22-30) mmol/L Anion Gap (8-16) BUN (6-20) mg/dl Creatinine (0.6-1.1) mg/dl GFR Calculation Glucose (70-105) mg/dL Calcium (8.6-10.4) mg/dl Total Bilirubin (0.0-1.0) mg/dL AST (0-37) U/l ALT (0-40) U/l Alkaline Phosphatase (39-117) U/L C-Reactive Protein < 0.3 (0.0-0.8) mg/dl Total Protein (5.9-8.4) gm/dL Albumin (3.2-5.2) gm/dL Globulin (2.2-3.7) gm/dL Albumin/Globulin Ratio (1.0-2.3) Critical Care Time Critical Care Time: Yes Total Critical Care Time: 55 Attestation: This critical care time was direct patient care exclusive of other procedures. Disposition Pt seen by OUTREACH CONSULTANT/PA only: No Clinical Impression: Upper gastrointestinal bleeding Disposition: Xfer As Inpt ([facility]) Condition: Serious
[2018-11-30] MEDS ORDERED: ONDANSETRON 4 MG/2 ML VIAL IV ONE (13:33)
[2018-11-30 13:34] LABS: Basophils # (Auto) 0.1 K/mcL (0.0-0.3); Basophils % (Auto) 0.6 % (0.0-2.0); Eosinophils # (Auto) 0.1 K/mcL (0.0-0.7); Eosinophils % (Auto) 0.8 % (0.0-7.0); Granulocytes % (Auto) 68.2 % (38.0-78.0); Hematocrit 36.8 % (36.0-48.0); Hemoglobin 11.9 g/dL (12.0-15.0); Lymphocytes # (Auto) 2.3 K/mcL (1.5-4.8); Lymphocytes % (Auto) 23.2 % (15.5-49.0); Mean Cell Volume 82.3 fL (80.0-100.0); Mean Corpuscular HGB Conc 32.4 g/dL (31.0-36.0); Mean Platelet Volume 9.3 fL (7.4-10.4); Monocytes # (Auto) 0.7 K/mcL (0.1-0.9); Monocytes % (Auto) 7.2 % (1.0-12.0); Platelet Count 281 K/mcL (140-440); RBC 4.47 M/mcL (4.00-5.20); Red Cell Distribution Width 15.3 % (11.5-14.5); WBC 9.9 K/mcL (4.5-11.0)
[2018-11-30] MEDS ORDERED: 0.9 % SODIUM CHLORIDE 250 ML IV SCH ×2 (13:45→15:30)
[2018-11-30 13:51] LABS: Prothrombin Time 13.6 sec (11.9-14.5)
[2018-11-30 13:59] LABS: ALT/SGPT 14 U/l (0-40); AST/SGOT 14 U/l (0-37); Albumin/Globulin Ratio 1.5 (1.0-2.3); Alkaline Phosphatase 82 U/L (39-117); Bilirubin,Total 0.2 mg/dL (0.0-1.0); Blood Urea Nitrogen 28 mg/dl (6-20); Calcium 8.8 mg/dl (8.6-10.4); Carbon Dioxide 23 mmol/L (22-30); Chloride 106 mmol/L (96-108); Globulin 2.7 gm/dL (2.2-3.7); Glomerular Filtration Rate 102; Glucose 102 mg/dL (70-105)
[2018-11-30] MEDS ORDERED: ONDANSETRON 4 MG/2 ML VIAL IV PRN (14:35)
--- NOTE | 2018-11-30 15:09 | General Surg History&Physical ---
History of Present Illness Patient information: Note initiated : 11/30/18 at 3:05 pm Service Date, if different from initiated Date: [] Patient: Pema White a 48 y/o F admitted on for Dark Tarry Stools. Chief Complaint: [Upper GI bleeding] HPI: Ms. White is a 48 year old F admitted for upper GI bleeding. She had a prior admission in December 2017 with nausea vomiting and black stools. She had significant bleeding that time with a syncopal episode. Upper endoscopy showed a large ulcer or hiatal hernia pouch at the level of the diaphragm. She had a prior history of a similar ulcer in April 2016 when she had bleeding and down to 6.6. That was also felt to be due to a Car ulcer. Patient states that she started having dark stools on Thursday. On Thursday night she had diarrheal stools. But YESTERDAY SHE HAD BLACK STOOLS 5. SHE STATES THAT SHE HAS MILD EPIGASTRIC DISCOMFORT AND NAUSEA. She has not had bright red rectal bleeding. She has had emesis of coffee ground material 3 and had one episode in the emergency room. Her last hemoglobin was 12.6. She is admitted and will be started on treatment with plans for upper endoscopy in the morning. Review of Systems All systems PM: reviewed and no additional remarkable complaints except as stated (negative except as noted below) - Constitutional headache(s) (frequent muscle contraction type headaches) - Gastrointestinal belching, bloating, dyspepsia, heartburn, hematemesis, melena, nausea, vomiting - Neurological dizziness, paresthesias (right ulnar neuropathy), vertigo (chronic dizziness and vertigo) Past History Past medical history: No chronic medical illness Past surgical history: Open treatment right femur fracture Open treatment left hand and wrist fracture Right knee arthroscopy Diagnostic laparoscopy Past family history: Negative according to patient Past social history: Employment Occasional alcohol use Denies drug use Denies tobacco use Medications and Allergies Home Medications Medication Instructions Recorded Confirmed Type Methocarbamol [Robaxin-750] 2 tab PO QIDP PRN 04/23/16 12/22/17 History Pantoprazole [Protonix] 40 mg PO QAMAC #90 tab 12/24/17 Rx Omeprazole [PriLOSEC] 40 mg PO ACB 11/30/18 11/30/18 History Allergies Allergy/AdvReac Type Severity Reaction Status Date / Time phenytoin [From Dilantin] AdvReac Mild Confusion Verified 11/30/18 12:30 Exam Temp Pulse Resp BP Pulse Ox 97.4 F 83 15 116/76 100 11/30/18 12:27 11/30/18 14:24 11/30/18 14:24 11/30/18 13:46 11/30/18 14:24 - General physical appearance well developed, well nourished, no distress - Eyes PERRL, normal ocular movement - ENT normal pinna, normal nares, normal mucosa, no hearing loss, no congestion - Head Head exam IM: Present: atraumatic, normocephalic - Neck no masses, no bruits, trachea midline, no lymphadenopathy, no venous distension - Cardiovascular Cardiovascular exam IM: Present: normal rate and rhythm - Respiratory normal expansion, normal respiratory effort, clear to percussion, clear to auscultation - Abdomen Abdomen: Present: tender (mild epigastric tenderness; good active bowel sounds), bowel sounds Hernia: Present: none - Genitourinary Present: normal external genitalia - Integumentary Present: no rash, no growths, no abnormal pigmentation - Neurologic Present: normal coordination, normal sensation - Musculoskeletal Present: normal gait, normal posture - Psychiatric Present: oriented to time, oriented to person, oriented to place, speech is normal, memory intact Assessment and Plan (1) Upper gastrointestinal bleeding Patient will be made nothing by mouth except for ice chips and popsicles She will get Nexium IV continuous infusion Carafate 1 g by mouth every 6 Schedule for upper endoscopy in the morning Serial hemoglobin and hematocrit if she has continued bleeding Status: Acute (2) Blood loss anemia We'll transfuse if needed Status: Acute
[2018-11-30] MEDS: 0.9 % SODIUM CHLORIDE 1,000 ML IV SCH ×2 (15:20→18:20)
[2018-11-30] MEDS: ESOMEPRAZOLE 40 MG VIAL IV SCH (17:55)
[2018-11-30] MEDS: SUCRALFATE 1 GM/10 ML ORAL.SUSP PO SCH (18:21)
[2018-11-30 18:37] LABS: Basophils # (Auto) 0.1 K/mcL (0.0-0.3); Basophils % (Auto) 0.6 % (0.0-2.0); Eosinophils # (Auto) 0 K/mcL (0.0-0.7); Eosinophils % (Auto) 0.3 % (0.0-7.0); Granulocytes % (Auto) 68.2 % (38.0-78.0); Hematocrit 29.6 % (36.0-48.0); Hemoglobin 9.6 g/dL (12.0-15.0); Lymphocytes # (Auto) 2.1 K/mcL (1.5-4.8); Lymphocytes % (Auto) 25.4 % (15.5-49.0); Mean Cell Volume 81.2 fL (80.0-100.0); Mean Corpuscular HGB Conc 32.5 g/dL (31.0-36.0); Mean Platelet Volume 9.3 fL (7.4-10.4); Monocytes # (Auto) 0.5 K/mcL (0.1-0.9); Monocytes % (Auto) 5.5 % (1.0-12.0); Platelet Count 205 K/mcL (140-440); RBC 3.64 M/mcL (4.00-5.20); Red Cell Distribution Width 15.3 % (11.5-14.5); WBC 8.4 K/mcL (4.5-11.0)
[2018-11-30] MEDS: HYDROmorphone 2 MG/ML VIAL IV PRN (22:29)
[2018-11-30] MEDS: 0.9 % SODIUM CHLORIDE 10 ML SYRINGE IV SCH (22:30)
[2018-12-01] MEDS: SUCRALFATE 1 GM/10 ML ORAL.SUSP PO SCH ×5 (00:34→23:30)
[2018-12-01] MEDS: 0.9 % SODIUM CHLORIDE 1,000 ML IV SCH ×4 (02:15→22:39)
[2018-12-01 05:41] LABS: Basophils # (Auto) 0 K/mcL (0.0-0.3); Basophils % (Auto) 0.5 % (0.0-2.0); Eosinophils # (Auto) 0.1 K/mcL (0.0-0.7); Eosinophils % (Auto) 1.3 % (0.0-7.0); Granulocytes % (Auto) 45.6 % (38.0-78.0); Hematocrit 26.5 % (36.0-48.0); Hemoglobin 8.6 g/dL (12.0-15.0); Lymphocytes # (Auto) 2.6 K/mcL (1.5-4.8); Lymphocytes % (Auto) 43.4 % (15.5-49.0); Mean Cell Volume 82.8 fL (80.0-100.0); Mean Corpuscular HGB Conc 32.3 g/dL (31.0-36.0); Monocytes # (Auto) 0.6 K/mcL (0.1-0.9); Monocytes % (Auto) 9.2 % (1.0-12.0); Platelet Count 185 K/mcL (140-440); RBC 3.21 M/mcL (4.00-5.20); Red Cell Distribution Width 15.4 % (11.5-14.5); WBC 6.1 K/mcL (4.5-11.0)
[2018-12-01] MEDS: 0.9 % SODIUM CHLORIDE 10 ML SYRINGE IV SCH ×3 (05:57→22:00)
[2018-12-01 06:19] LABS: ALT/SGPT 9 U/l (0-40); AST/SGOT 11 U/l (0-37); Albumin 2.9 gm/dL (3.2-5.2); Albumin/Globulin Ratio 1.5 (1.0-2.3); Alkaline Phosphatase 56 U/L (39-117); Bilirubin,Direct < 0.2 mg/dL (0.0-0.3); Bilirubin,Total 0.2 mg/dL (0.0-1.0); Blood Urea Nitrogen 14 mg/dl (6-20); Calcium 7.8 mg/dl (8.6-10.4); Carbon Dioxide 18 mmol/L (22-30); Chloride 112 mmol/L (96-108); Globulin 1.9 gm/dL (2.2-3.7); Glomerular Filtration Rate 102; Glucose 82 mg/dL (70-105); Lactate Dehydrogenase 207 U/L (94-250); Phosphorous 3.1 mg/dL (2.7-4.5); Triglycerides 127 mg/dl (<150); Uric Acid 3.5 mg/dL (2.5-8.0)
[2018-12-01] MEDS: ESOMEPRAZOLE 40 MG VIAL IV SCH ×2 (07:36→17:26)
--- NOTE | 2018-12-01 08:40 | XRay Report ---
CLINICAL INFORMATION: Pre Op COMPARISON: 12/23/2017 chest x-ray and abdominal CT 12/22/2017 FINDINGS: Heart is normal in size configuration. Increased density in the retrocardiac region represents known large hiatal hernia with compressive atelectasis in the adjacent left lower lobe. This is long-standing. The remaining mediastinum and pulmonary vessels are normal. The lungs are, otherwise, clear. No effusions. IMPRESSION: Large hiatal hernia with compressive atelectasis of the adjacent left lower lobe - chronic. Interpreted and Authenticated by: Quincy Nino 12/01/18
[2018-12-01] MEDS ORDERED: PROPOFOL 200 MG/20 ML VIAL IV ONE (09:20)
[2018-12-01] MEDS ORDERED: fentaNYL 100 MCG/2 ML VIAL IV ONE (09:20)
[2018-12-01] MEDS ORDERED: SUCCINYLCHOLINE 20 MG/ML ML IV ONE (09:20)
[2018-12-01] MEDS ORDERED: LIDOCAINE HCL/PF 100 MG/5 ML SYRINGE IV ONE (09:20)
[2018-12-01] MEDS ORDERED: ONDANSETRON 4 MG/2 ML VIAL IV ONE (09:20)
[2018-12-01] MEDS ORDERED: DEXAMETHASONE 10 MG/ML VIAL IV ONE (09:20)
[2018-12-01] MEDS ORDERED: FLUMAZENIL 0.1 MG/ML ML IV PRN (09:58)
[2018-12-01] MEDS ORDERED: LACTATED RINGERS 250 ML IV PRN (09:58)
[2018-12-01] MEDS ORDERED: BENZOCAINE/MENTHOL 1 LOZENGE PO PRN (09:58)
[2018-12-01] MEDS ORDERED: diphenhydrAMINE 50 MG/ML VIAL IV PRN (09:58)
[2018-12-01] MEDS ORDERED: PROMETHAZINE 25 MG/ML VIAL IV PRN (09:58)
[2018-12-01] MEDS ORDERED: ONDANSETRON 4 MG/2 ML VIAL IV PRN (09:58)
[2018-12-01] MEDS ORDERED: MEPERIDINE 25 MG/ML SYRINGE IV PRN (09:58)
[2018-12-01] MEDS ORDERED: HALOPERIDOL LACTATE 5 MG/ML VIAL IV PRN (09:58)
[2018-12-01] MEDS ORDERED: IPRATROPIUM/ALBUTEROL 3 ML AMPUL.NEB NEB PRN (09:58)
[2018-12-01] MEDS ORDERED: NALOXONE HCL 0.4 MG/ML VIAL IV PRN (09:58)
--- NOTE | 2018-12-01 09:58 | Brief Operative Note ---
Date of procedure: 12/01/18 Pre-op diagnosis: UPPER G.I. BLEEDING Post-op diagnosis: other (MULTIPLE ULCERS OF HIATAL HERNIA (TASHA'S ULCER); DISTAL ANTRAL GASTRITIS) Procedure: EGD WITH BIOPSIES AN KALIN TEST Grafts/Implants: No Anesthesia: GETA Findings: MODERATE SIZES HIATAL HERNIA WITH 5 SEPARATE LINEAR ULCERS AT BORDER OF HERNIA POUCH;NO ACTIVE BLEEDING NOTED Complications: none Surgeon: Chyna Metzger Specimens Removed/Pathology: other (HIATAL HERNIA ULCER BIOPSIES ;ANTRAL BIOPSIES) Condition: stable Disposition: PACU
[2018-12-01] MEDS ORDERED: LACTATED RINGERS 1,000 ML IV SCH (10:00)
--- NOTE | 2018-12-01 17:24 | Operative Note ---
DATE OF OPERATION: 12/01/2018 PREOPERATIVE DIAGNOSIS: Upper GI bleeding. POSTOPERATIVE DIAGNOSES: Multiple ulcers of hiatal hernia pouch suggestive of Car ulcers, distal antral gastritis. PROCEDURE: Esophagogastroduodenoscopy with biopsies and CLOtest. SURGEON: Chyna Metzger M.D. FINDINGS: Moderate-sized hiatal hernia with five separate linear ulcers at the border of the hernia pouch. No active bleeding noted. Moderate inflammation of the prepyloric antrum. Normal duodenum. DESCRIPTION OF PROCEDURE: Under general anesthesia, the patient was turned to the left lateral decubitus position. She was intubated preprocedure because of her recurrent episodes of nausea and vomiting throughout the night with emesis of large volume of coffee-ground material. The scope was introduced through the bite block into the retropharynx. Posterior pharynx was unremarkable. After pursuing through the cricopharyngeus, the esophagus proximally was unremarkable. There was no bleeding from the esophagus down to the GE junction. The mucosa was normal. There were a few small superficial vessels above the GE junction, but there was no evidence of bleeding. There was no stricture, web, or ring. There was no inflammation. The fundus in the hernia pouch showed multiple linear ulcers with a fibrinous base. Most of these ulcers were long, inflamed rugae. There was no bleeding. There appeared to be five separate mini ulcers near the border of the hernia at the level of the diaphragm. The body of the stomach was unremarkable except for slight hyperemia. The antrum showed moderate inflammation in the prepyloric antrum without ulceration or erosion. Pylorus opened appropriately. There was no channel ulcer. Scope was introduced through the third portion of duodenum. No old blood or fresh blood was seen. Scope was pulled back and retroflex view was done. The aforementioned ulcers in the hernia pouch were noted. Biopsies of the antrum were taken for routine pathology and for CLOtest. The scope was then pulled into the hernia pouch and four separate biopsies of the ulcers were done. There was minimal bleeding. The patient tolerated the procedure well. Air was suctioned from the stomach, and the scope was removed. She was awakened, extubated, and transferred to the postanesthetic care unit in stable, satisfactory condition. LCS:juan c Job ID: [id number] Doc ID: [id number] Chyna Metzger M.D.
[2018-12-01] MEDS: HYDROmorphone 2 MG/ML VIAL IV PRN (23:29)
[2018-12-02] MEDS: 0.9 % SODIUM CHLORIDE 10 ML SYRINGE IV SCH ×2 (05:15→13:51)
[2018-12-02] MEDS: SUCRALFATE 1 GM/10 ML ORAL.SUSP PO SCH ×3 (05:17→17:24)
[2018-12-02] MEDS: 0.9 % SODIUM CHLORIDE 1,000 ML IV SCH ×3 (05:19→13:50)
[2018-12-02 06:45] LABS: Basophils # (Auto) 0 K/mcL (0.0-0.3); Basophils % (Auto) 0.1 % (0.0-2.0); Eosinophils # (Auto) 0 K/mcL (0.0-0.7); Eosinophils % (Auto) 0 % (0.0-7.0); Granulocytes % (Auto) 87.4 % (38.0-78.0); Hematocrit 25.7 % (36.0-48.0); Hemoglobin 8.3 g/dL (12.0-15.0); Lymphocytes # (Auto) 1.1 K/mcL (1.5-4.8); Lymphocytes % (Auto) 8.7 % (15.5-49.0); Mean Cell Volume 82.8 fL (80.0-100.0); Mean Corpuscular HGB Conc 32.2 g/dL (31.0-36.0); Mean Platelet Volume 9.2 fL (7.4-10.4); Monocytes # (Auto) 0.5 K/mcL (0.1-0.9); Monocytes % (Auto) 3.8 % (1.0-12.0); Platelet Count 195 K/mcL (140-440); Red Cell Distribution Width 15.6 % (11.5-14.5); WBC 12.4 K/mcL (4.5-11.0)
[2018-12-02] MEDS: ESOMEPRAZOLE 40 MG VIAL IV SCH ×2 (07:21→17:24)
[2018-12-02 07:31] LABS: Chloride 110 mmol/L (96-108)
[2018-12-02 07:32] LABS: ALT/SGPT 12 U/l (0-40); AST/SGOT 13 U/l (0-37); Albumin 3.2 gm/dL (3.2-5.2); Albumin/Globulin Ratio 1.5 (1.0-2.3); Alkaline Phosphatase 59 U/L (39-117); Bilirubin,Direct < 0.2 mg/dL (0.0-0.3); Bilirubin,Total < 0.2 mg/dL (0.0-1.0); Blood Urea Nitrogen 10 mg/dl (6-20); Calcium 8.6 mg/dl (8.6-10.4); Carbon Dioxide 20 mmol/L (22-30); Globulin 2.1 gm/dL (2.2-3.7); Glomerular Filtration Rate 87; Glucose 160 mg/dL (70-105); Lactate Dehydrogenase 200 U/L (94-250); Phosphorous 2.9 mg/dL (2.7-4.5); Triglycerides 75 mg/dl (<150); Uric Acid 2.8 mg/dL (2.5-8.0)
--- NOTE | 2018-12-02 13:56 | Surgical Pathology Report ---
HISTOLOGY SPECIMEN MICROSCOPIC DIAGNOSIS SPECIMEN A - STOMACH, ANTRUM, BIOPSY: -- MILD CHRONIC GASTRITIS. -- NO HELICOBACTER TYPE ORGANISMS IDENTIFIED (ALCIAN YELLOW STAIN WITH ADEQUATE TECHNICAL CONTROL). SPECIMEN B - STOMACH, ANTRUM, BIOPSY: -- GASTRIC MUCOSA WITH MINIMAL CHRONIC INFLAMMATION AND FEATURES SUGGESTIVE OF REACTIVE GASTROPATHY. -- NO HELICOBACTER TYPE ORGANISMS IDENTIFIED (ALCIAN YELLOW STAIN WITH ADEQUATE TECHNICAL CONTROL). SPECIMEN C - STOMACH, FUNDIC ULCER, BIOPSY: -- MILD CHRONIC ACTIVE GASTRITIS WITH SUPERFICIAL MUCOSAL EROSION. -- NO HELICOBACTER TYPE ORGANISMS IDENTIFIED (ALCIAN YELLOW STAIN WITH ADEQUATE TECHNICAL CONTROL). (RLF:pedro) CLINICAL HISTORY Upper GI bleeding. PROCEDURAL IMPRESSION Ulcers of hiatal hernia (Car ulcer); distal antral gastritis. GROSS DESCRIPTION Specimen A: Received in formalin labeled antrum biopsy, are two garcia tissue fragments 0.4 cm each. Entirely submitted - one cassette. Specimen B: Received in formalin labeled antrum biopsy ? H. pylori, are two garcia tissue fragments 0.2 and 0.8 cm. Entirely submitted - one cassette. Specimen C: Received in formalin labeled fundic ulcer biopsy, is a 0.3 cm garcia tissue fragment. Entirely submitted - one cassette. (SCB:pedro) Electronically Signed by: Carol Appiah M.D.
--- NOTE | 2018-12-02 16:35 | Discharge Summary ---
Providers - Providers Patient information: Note initiated : 12/02/18 at 4:31 pm Service Date, if different from initiated Date: [] Patient: Pema White 48 y/o F admitted on 11/30/18 for Dark Tarry Stools. Chief Complaint: [] Date of admission: 11/30/18 Discharge date: 12/02/18 Attending physician: Chyna Metzger Primary care physician: Rob Mendoza Hospitalization Hospital Course: 48-year-old female admitted for upper GI bleed. The patient had prior upper GI bleeds in 2017 and 2018. These bleeds were due to Car ulcers in the hiatal hernia pouch. On the day before admission she had multiple black stools and now epigastric discomfort with nausea. She was seen in the emergency room where she had multiple episodes of coffee-ground emesis. Her hemoglobin had dropped from 12.6-11.9. Patient was admitted for treatment and for upper endoscopy. She was treated with IV Nexium by mouth Carafate. On 01 December upper endoscopy was done. This showed 5 mm linear ulcers primarily in the hiatal hernia. These were biopsy and the antrum was also biopsied with specimens sent for CLOtest. The patient has remained stable. Her hemoglobin drifted down from 9.6-8.3 however she has not had any further melena since admission. There was no evidence of bleeding on endoscopy out to the third portions of the duodenum. Patient is clinically stable at this time and is discharged home. She will be discharged on pantoprazole and ranitidine. She is advised that if she cannot get ranitidine that she can use Pepcid. Discharge diagnosis: upper GI bleeding Secondary discharge diagnosis: Multiple ulcers of hiatal hernia pouch Blood loss anemia Reason for admission: upper GI bleeding with hematemesis Procedures: Esophagogastroduodenoscopy with biopsies and CLOtest Pertinent studies/significant findings: None Complications: None Exam Temp Pulse Resp BP Pulse Ox 98.0 F 93 H 16 118/77 93 12/02/18 15:57 12/02/18 12:00 12/02/18 15:57 12/02/18 15:57 12/02/18 12:00 - General physical appearance well developed, well nourished, no distress - Eyes PERRL, normal ocular movement - ENT normal pinna, normal nares, normal mucosa, no hearing loss, no congestion - Head Head exam IM: Present: atraumatic, normocephalic - Neck no masses, no bruits, trachea midline, no lymphadenopathy, no venous distension - Cardiovascular Cardiovascular exam IM: Present: normal rate and rhythm - Respiratory normal expansion, normal respiratory effort, clear to percussion, clear to auscultation - Abdomen Abdomen: Present: soft, tender (minimal epigastric tenderness; active bowel sounds; no masses), bowel sounds Hernia: Present: none - Genitourinary Present: normal external genitalia - Integumentary Present: no rash, no growths, no abnormal pigmentation - Neurologic Present: normal coordination, normal sensation - Musculoskeletal Present: normal gait, normal posture - Psychiatric Present: oriented to time, oriented to person, oriented to place, speech is normal, memory intact Discharge Plan - Patient/Caregiver Discharge Instructions Activity: increase activity as tolerated Diet: Regular Diet - Follow up Plan Follow up with: Chyna Metzger MD [Physician] - Rob Mendoza MD [Primary Care Provider] - 12/06/18 2:00 pm Disposition: Home, Self-Care Care Plan Goals: This discharge packet is provided to you to help keep you informed about your care. We want to ensure you get everything you need when you go home. You will also be receiving a call from us in a few days to follow up with you and see how you are doing since your discharge. This gives us a chance to listen to any concerns you maybe experiencing since you were discharged or any additional needs you may have, as well as providing us feedback on your care experience. We strive to always provide excellent care and thank you for your feedback and for choosing [facility]. Prognosis: Good Rehab Potential: Good I certify that the patient requires SNF services.: No Overall status at discharge: patient is back to baseline Pending Studies Resuscitation Status Full Code Diet Regular Diet Start ThuDec 01 1046 Esomeprazole Magnesium (Nexium) 40 mg IV BIDAC [facility] Last Admin: 12/02/18 07:21 Dose: 40 mg Documented by: [email or web address] Admin: 12/01/18 17:26 Dose: 40 mg Documented by: Admin: 12/01/18 07:36 Dose: 40 mg Documented by: Admin: 11/30/18 17:55 Dose: 40 mg Documented by: PEDRO Hydromorphone HCl (Dilaudid) 0.5 mg IV Q2HP PRN PRN Reason: PAIN LEVEL > 6 Last Admin: 12/01/18 23:29 Dose: 0.5 mg Documented by: Admin: 11/30/18 22:29 Dose: 0.5 mg Documented by: ZAY Sodium Chloride (Sodium Chloride 0.9%) 1,000 mls @ 125 mls/hr IV .Q8H [facility] Last Admin: 12/02/18 13:50 Dose: Not Given Documented by: Admin: 12/02/18 11:33 Dose: 125 mls/hr Documented by: Infusion: 12/02/18 11:32 Dose: 0 mls/hr Documented by: Admin: 12/02/18 05:19 Dose: Not Given Documented by: Admin: 12/01/18 22:39 Dose: Not Given Documented by: Admin: 12/01/18 15:49 Dose: Not Given Documented by: Admin: 12/01/18 12:02 Dose: 125 mls/hr Documented by: Infusion: 12/01/18 10:15 Dose: 125 mls/hr Documented by: Admin: 12/01/18 02:15 Dose: 125 mls/hr Documented by: [email or web address] Infusion: 12/01/18 02:15 Dose: 125 mls/hr Documented by: [email or web address] Admin: 11/30/18 18:20 Dose: 125 mls/hr Documented by: Infusion: 11/30/18 18:20 Dose: 125 mls/hr Documented by: Admin: 11/30/18 15:20 Dose: 125 mls/hr Documented by: DANO Sodium Chloride (Saline Flush) 10 ml IV Q8 [facility] Last Admin: 12/02/18 13:51 Dose: Not Given Documented by: Admin: 12/02/18 05:15 Dose: Not Given Documented by: Admin: 12/01/18 22:00 Dose: Not Given Documented by: Admin: 12/01/18 14:35 Dose: Not Given Documented by: Admin: 12/01/18 05:57 Dose: 10 ml Documented by: Admin: 11/30/18 22:30 Dose: 10 ml Documented by: [email or web address] Sucralfate (Carafate) 1 gm PO Q6 [email or web address] Last Admin: 12/02/18 11:30 Dose: 1 gm Documented by: [email or web address] Admin: 12/02/18 05:17 Dose: 1 gm Documented by: Admin: 12/01/18 23:30 Dose: 1 gm Documented by: Admin: 12/01/18 17:26 Dose: 1 gm Documented by: Admin: 12/01/18 11:52 Dose: 1 gm Documented by: [email or web address] Admin: 12/01/18 05:57 Dose: 1 gm Documented by: [email or web address] Admin: 12/01/18 00:34 Dose: 1 gm Documented by: [email or web address] Admin: 11/30/18 18:21 Dose: 1 gm Documented by: PEDRO Shift Summary 12/02/18 15:37 Shift Summary by Chelsea Dsouza Reports H/A off/on. Has declined PRN medications. Ice packs effective. Up with SBA. Voiding per BR. No BM today. EGD showed hiatal hernia with no active bleeding. H/H remains stable. Afebrile today. WBC increased from 6.1 to 12.4. Has been SR 80-90's, rate up to 120's with activity. Poss D/C later today or tomorrow. Initialized on 12/02/18 15:37 - END OF NOTE
== END 2018-12-02 18:20 | disposition home or self-care (01) ==
LOC: ED 12:26 → ICU 16:00 → INTOOBSV 16:02 → ICU 12-01 14:35
PROVIDERS: ADMIT Family Medicine Adult Medicine; ATTEND Family Medicine Adult Medicine